=== PATIENT | male | born 1960 | race Caucasian/White ===

== ENCOUNTER → 2019-09-09 | Emergency (ER) | payer OTHER ==
[~2019-09-09] VITALS: Ht 175.3 cm; Wt 82.6 kg
[~2019-09-09] MED LIST: CYMBALTA20 MG; LYRICA50 MG; METFORMIN HCL500 MG; OXYCODONE HCL5 M1
== END | disposition home or self-care (01) ==
LOC: ER 20:10
DX: S92.331A Displaced fracture of third metatarsal bone, right foot, initial encounter for closed fracture (principal); W23.0XXA Caught, crushed, jammed, or pinched between moving objects, initial encounter; Y93.89 Activity, other specified; Y92.018 Other place in single-family (private) house as the place of occurrence of the external cause; Y99.8 Other external cause status